=== PATIENT | female | born 2000 | race Caucasian/White ===

== ENCOUNTER 2019-12-23 11:34 | Emergency (ER) | payer BC ==
[2019-12-23] MEDS ORDERED: DEXAMETHASONE SOD PHOS INJ 10 MG/1 ML VIAL IM ONE (13:21)
[2019-12-23] MEDS ORDERED: PENICILLIN G BENZATHINE 1.2 MILLION UNIT/2 ML DISP.SYRIN IM ONE (13:21)
[2019-12-23] MEDS ORDERED: METHYLPREDNISOLONE ACETATE INJ 40 MG/1 ML ML IM ONE (13:21)
--- NOTE | 2019-12-23 13:28 | ER Document Report ---
HPI - HPI Patient complains to provider of: Sore throat Time Seen by Provider: 12/23/19 13:01 Onset: Other - Progressive for 3 days Onset/Duration: Gradual Pain Level: 3 Associated Symptoms: None Exacerbated by: Denies Relieved by: Denies - ROS Systems Reviewed and Negative: Yes All other systems reviewed and negative - EENT EENT: REPORTS: Sore Throat, Ear Pain Past Medical History - General Information source: Patient - Social History Smoking Status: Current Every Day Smoker Cigarette use (# per day): Yes - 20 Frequency of alcohol use: Occasional Drug Abuse: None Family History: None Vertical Provider Document - CONSTITUTIONAL Agree With Documented VS: Yes - INFECTION CONTROL TRAVEL OUTSIDE OF THE [place] IN LAST 30 DAYS: Yes - HEENT HEENT: Atraumatic, Conjuctival Injection, Normocephalic, PERRLA - NECK Neck: Normal Inspection - RESPIRATORY Respiratory: Rhonchi - Skin to the left upper lobe cleared with a cough. Course - Re-evaluation Re-evalutation: 12/23/19 13:25 No nausea no vomiting no fever patient did state she thought she had one previously however she does frequently get that with reactive airway disease and strep throat. 12/23/19 13:26 Patient I had a long conversation regarding smoking and the effects on asthma bronchitis reactive airway disease pharyngitis the smoking education was performed. - Vital Signs Vital signs: Temp Pulse Resp BP Pulse Ox 98.7 F 111 H 20 137/72 H 100 12/23/19 11:39 12/23/19 11:39 12/23/19 11:39 12/23/19 11:39 12/23/19 11:39 Discharge - Discharge Clinical Impression: Reactive airway disease with wheezing Qualifiers: Asthma severity: mild Asthma persistence: intermittent Asthma complication type: with acute exacerbation Qualified Code(s): J45.21 - Mild intermittent asthma with (acute) exacerbation Condition: Good Disposition: HOME, SELF-CARE Additional Instructions: He been diagnosed with reactive airway disease triggers for such could be smoking pollen. Increase fluid intake increase rest must follow-up PMD in 3 to 5 days. Return to emergency room for any change worsening condition. Prescriptions: Prednisone [Deltasone 20 mg Tablet] 3 tab PO DAILY 5 Days tablet
[2019-12-23 14:00] VITALS: BP 103/72
== END 2019-12-23 14:14 | disposition home or self-care (01) ==
LOC: ER 11:34
DX: J45.21 Mild intermittent asthma with (acute) exacerbation (principal); J02.9 Acute pharyngitis, unspecified; H92.09 Otalgia, unspecified ear; F17.210 Nicotine dependence, cigarettes, uncomplicated
CPT/HCPCS: 99283; 96372; 87070; 87880; 87077; J1030; J0561; J1100

== ENCOUNTER 2020-01-08 10:09 | Emergency (ER) | payer BC ==
[2020-01-08 10:15] VITALS: BP 143/76
[2020-01-08] MEDS ORDERED: LIDOCAINE 1% INJ-PF (10 MG/ML) 30 ML SDV NEB ONE (10:40)
[2020-01-08] MEDS ORDERED: CEFTRIAXONE INJ 1000 MG VIAL IM ONE (10:40)
--- NOTE | 2020-01-08 10:46 | ER Document Report ---
ED Breast Problem - General Chief Complaint: Breast Problem Stated Complaint: BREAST PAIN Time Seen by Provider: 01/08/20 10:40 Notes: CHIEF COMPLAINT: Breast infection HPI: 19-year-old female with multiple piercings including nipple rings pre senting for right breast infection. Patient states that her nipple ring ripped out approximately 10 days ago when she got out of the shower when it pulled on a towel. She did place it back in but has had increasing pain and redness to the breast. No fever but reports she has now noticed some redness around the nipple and is concerned about an infection. Denies history of frequent skin infections ROS: See HPI - all other systems were reviewed and are otherwise negative Constitutional: no fever Integumentary: + rash Allergy: no hives Musculoskeletal: no extremity pain or swelling MEDICATIONS: I agree with the patient medications as charted by the RN. ALLERGIES: I agree with the allergies as charted by the RN. PAST MEDICAL HISTORY/PAST SURGICAL HISTORY: Reviewed and agree as charted by RN. SOCIAL HISTORY: Reviewed and agree as charted by RN. FAMILY HISTORY: No significant familial comorbid conditions directly related to patient complaint EXAM: Female air/ocean export clerk present Reviewed vital signs as charted by RN. CONSTITUTIONAL: Alert and oriented and responds appropriately to questions. Well-appearing; well-nourished HEAD: Normocephalic; atraumatic EYES: Conjunctivae clear, sclerae non-icteric ENT: normal nose; no rhinorrhea; moist mucous membranes NECK: Supple without meningismus; non-tender; no cervical lymphadenopathy, no masses CARD: symmetric distal pulses RESP: Normal chest excursion without splinting or tachypnea Breast: Nipple rings are present. There is erythema surrounding the areola of the right breast extending in a diameter of approximately 4 cm. There is no discharge from the nipple of the right breast. There is no retraction. There is no palpable mass, fluctuant or indurated area underneath the areola. ABD/GI: non-distended BACK: The back appears normal EXT: Normal ROM in all joints; no cyanosis, no effusions, no edema SKIN: Normal color for age and race; warm; dry; good turgor NEURO: Moves all extremities equally; Motor and sensory function intact PSYCH: The patient's mood and manner are appropriate. Grooming and personal hygiene are appropriate. MDM: 19-year-old female with a right breast cellulitis. No palpable mass or ind urated region suggesting an abscess at this time we spoke of this at length, will give Rocephin in the emergency department, place patient on Bactrim and Keflex. 48-hour recheck or sooner if symptoms worsen she verbalizes understanding TRAVEL OUTSIDE OF THE [place] IN LAST 30 DAYS: Yes - Related Data Allergies/Adverse Reactions: No Known Allergies Allergy (Verified 12/23/19 13:32) Past Medical History - Social History Smoking Status: Current Every Day Smoker Frequency of alcohol use: Social Drug Abuse: Marijuana Family History: None Physical Exam - Vital signs Vitals: Temp Pulse Resp BP Pulse Ox 99.4 F 110 H 16 143/76 H 100 01/08/20 10:14 01/08/20 10:14 01/08/20 10:01/08/20 10:14 01/08/20 10:14 Course - Vital Signs Vital signs: Temp Pulse Resp BP Pulse Ox 99.4 F 110 H 16 143/76 H 100 01/08/20 10:14 01/08/20 10:14 01/08/20 10:14 01/08/20 10:14 01/08/20 10:14 Discharge - Discharge Clinical Impression: Cellulitis of right breast Condition: Stable Disposition: HOME, SELF-CARE Instructions: Cellulitis ([facility]) Additional Instructions: Warm compresses to the breast frequently. Take the antibiotics as prescribed. You should see improvement in the redness and discomfort within 48 hours if you have worsening redness swelling or firmness of the breast return to the emergency department for reevaluation as discussed Prescriptions: Sulfamethoxazole/Trimethoprim [Bactrim Ds Tablet] 2 tab PO BID #28 tablet Cephalexin Monohydrate [Keflex 500 mg Capsule] 500 mg PO Q6H 7 Days #28 capsule Referrals: MILTON KATZ MD [ACTIVE STAFF] - Follow up as needed
== END 2020-01-08 11:09 | disposition home or self-care (01) ==
LOC: ER 10:09
DX: N61.0 Mastitis without abscess (principal); F17.200 Nicotine dependence, unspecified, uncomplicated; F12.10 Cannabis abuse, uncomplicated
CPT/HCPCS: 99283; 96372; J3490; J0696

== ENCOUNTER 2020-01-09 18:38 | Emergency (ER) | payer SELFPAY ==
[2020-01-09] MEDS ORDERED: ONDANSETRON HCL INJ/PF 4 MG/2 ML SDV IV ONE ×2 (19:34→22:30)
[2020-01-09] MEDS ORDERED: FENTANYL CITRATE INJ/PF 100 MCG/2 ML AMPUL IV ONE ×2 (19:34→22:30)
--- NOTE | 2020-01-09 19:37 | ER Document Report ---
ED Medical Screen (RME) - General Chief Complaint: Skin Problem Stated Complaint: POSSIBLE INFECTED PIERCING Time Seen by Provider: 01/09/20 19:33 Notes: HPI: 19-year-old female presenting again for reevaluation of right breast pain and swelling. Patient was seen 2 days ago for infection around the nipple of the right breast after she tore piercing out. She was given Rocephin Keflex and Bactrim states she is throwing up the antibiotics the pain is much worse and the redness has spread. No definitive fever PHYSICAL EXAMINATION: With female tap builder present the right breast appears more erythematous than previous with erythema extending now up onto the dorsum of the breast. There is still no definitive indurated region around the nipple and areola but there is erythema extending around the nipple with some crusting over the nipple itself I have greeted and performed a rapid initial assessment of this patient. A comprehensive ED assessment and evaluation of the patient, analysis of test results and completion of medical decision making process will be conducted by an additional ED providers. TRAVEL OUTSIDE OF THE [place] IN LAST 30 DAYS: Yes - Related Data Allergies/Adverse Reactions: No Known Allergies Allergy (Verified 12/23/19 13:32) Home Medications: bactrim, keflex--causing vomiting. Past Medical History - Social History Frequency of alcohol use: None Drug Abuse: Marijuana Physical Exam - Vital signs Vitals: Temp Pulse Resp BP Pulse Ox 99.7 F 110 H 19 139/73 H 98 01/09/20 18:49 01/09/20 18:49 01/09/20 18:49 01/09/20 18:49 01/09/20 18:49 Course - Vital Signs Vital signs: Temp Pulse Resp BP Pulse Ox 99.7 F 110 H 19 139/73 H 98 01/09/20 18:49 01/09/20 18:49 01/09/20 18:49 01/09/20 18:49 01/09/20 18:49
[2020-01-09 20:32] LABS: ABSOLUTE BASOPHILS # (AUTO) 0.1 10^3/uL (0.0-0.2); ABSOLUTE EOSINOPHILS # (AUTO) 0.1 10^3/uL (0.0-0.6); HEMOGLOBIN 13.2 g/dL (12.0-15.5); MEAN CORPUSCULAR HGB CONC 33.6 g/dL (32.0-36.0); TOTAL CELLS COUNTED % (AUTO) 100 %
[2020-01-09 20:36] LABS: ALBUMIN 4.6 g/dL (3.5-5.0); ALKALINE PHOSPHATASE 88 U/L (38-126); ANION GAP 9 (5-19); ASPARTATE AMINO TRANSFERASE 19 U/L (14-36); BILIRUBIN,TOTAL 0.6 mg/dL (0.2-1.3); BLOOD UREA NITROGEN 11 mg/dL (7-20); CALCIUM 9.8 mg/dL (8.4-10.2); CARBON DIOXIDE 24 mmol/L (22-30); CHLORIDE 103 mmol/L (98-107); GLUCOSE 87 mg/dL (75-110); POTASSIUM 3.8 mmol/L (3.6-5.0)
[2020-01-09 20:52] LABS: ABSOLUTE LYMPHOCYTES (AUTO) 2.5 10^3/uL (0.5-4.7); ABSOLUTE MONOCYTES (AUTO) 0.9 10^3/uL (0.1-1.4); ABSOLUTE NEUT (AUTO) 12.2 10^3/uL (1.7-8.2); BASOPHILS % (AUTO) 0.6 % (0-2); EOSINOPHILS % (AUTO) 0.5 % (0-6); HEMATOCRIT 39.4 % (36.0-47.0); LYMPHOCYTES % (AUTO) 15.6 % (13-45); MEAN CORPUSCULAR HEMOGLOBIN 29.3 pg (27.0-33.4); MEAN CORPUSCULAR VOLUME 87 fl (80-97); PLATELET COUNT 292 10^3/uL (150-450); RED BLOOD COUNT 4.52 10^6/uL (3.72-5.28); SEGMENTED NEUTROPHILS % (AUTO) 77.3 % (42-78); WHITE BLOOD COUNT 15.7 10^3/uL (4.0-10.5)
--- NOTE | 2020-01-09 22:33 | ER Document Report ---
ED General - General Chief Complaint: Skin Problem Stated Complaint: POSSIBLE INFECTED PIERCING Time Seen by Provider: 01/09/20 19:33 TRAVEL OUTSIDE OF THE [place] IN LAST 30 DAYS: Yes - HPI Notes: 19-year-old female no significant past medical history presents with pain and redness in right breast and discharge from right nipple after accidentally tearing out nipple piercing approximately 1.5 weeks ago. Patient has had breast piercings for past 2 years without complication. Patient was seen in this ED yesterday and prescribed Bactrim and Keflex but she says they have made her vomit and she has not been able to keep them down. Patient denies any fever, abdominal pain, constipation/diarrhea, headache, neck pain or stiffness, cough, chest pain, shortness of breath, immune compromise history, prior episodes, rash, dizziness, fainting, urinary symptoms, vaginal symptoms - Related Data Allergies/Adverse Reactions: No Known Allergies Allergy (Verified 12/23/19 13:32) Home Medications: bactrim, keflex--causing vomiting. Past Medical History - General Information source: Patient, [facility] Records - Social History Smoking Status: Current Every Day Smoker Frequency of alcohol use: None Drug Abuse: Marijuana Family History: None Patient has homicidal ideation: No Review of Systems - Review of Systems Notes: REVIEW OF SYSTEMS: CONSTITUTIONAL : Denies fever, chills, or sweats. EENT: Denies recent cold/sinus symptoms, denies throat pain CARDIOVASCULAR: Denies chest pain, AURELIA RESPIRATORY: Denies cough, denies shortness of breath. GASTROINTESTINAL: Denies abdominal pain, +nausea/vomiting. GENITOURINARY: Denies difficulty urinating, painful urination. FEMALE GENITOURINARY: Denies abnormal vaginal bleeding, vaginal discharge. MUSCULOSKELETAL: Denies neck pain, back pain. SKIN: Denies rash or skin lesions. HEMATOLOGIC : Denies easy bruising or bleeding. LYMPHATIC: Denies swollen, enlarged glands. NEUROLOGICAL: Denies headache, denies change in gait. PSYCHIATRIC: Denies anxiety or stress or depression. Physical Exam - Vital signs Vitals: Temp Pulse Resp BP Pulse Ox 99.7 F 110 H 19 139/73 H 98 01/09/20 18:49 01/09/20 18:49 01/09/20 18:49 01/09/20 18:49 01/09/20 18:49 - Notes Notes: PHYSICAL EXAMINATION: GENERAL: Well-appearing, well-nourished and in no acute distress. HEAD: Atraumatic, normocephalic. EYES: Pupils equal round and appropriate constriction, sclera anicteric, conjunctiva are normal. ENT: nares patent, moist mucous membranes. NECK: Normal range of motion, supple without lymphadenopathy LUNGS: Breath sounds clear to auscultation bilaterally and equal. No wheezes rales or rhonchi. HEART: Regular rate and rhythm without murmurs CHEST: Breast equal in size, left breast normal inspection, right breast very mild erythema around the nipple and crusting of right nipple without any discharge, fluctuance, or induration ABDOMEN: Soft, nontender, no guarding, no masses, no CVAT EXTREMITIES: Normal range of motion, no pitting or edema. No cyanosis. NEUROLOGICAL: Awake, alert, conversing appropriately, moves all extremities spontaneously. PSYCH: Normal mood, normal affect. SKIN: Warm, Dry, normal turgor Course - Re-evaluation Re-evalutation: 01/09/20 22:39 Very well-appearing patient with persistent right breast pain after unable to tolerate p.o. antibiotics. Patient mildly tachycardic during initial triage vitals, but tachycardia resolved at the time of my exam without any inter vention. Given tachycardia and leukocytosis aortic lactate to rule out severe sepsis, but patient clinically very well-appearing and no signs of hemodynamic instability. Pending ultrasound read to rule out breast abscess. Will give first dose of clindamycin p.o. in ED to ensure that patient is able to tolerate it. No signs of any other sources of infection and vomiting appears to be secondary to intolerance of antibiotics. Patient has no abdominal symptoms, no SERVICE TEAM LEADER symptoms, no vaginal or urinary symptoms, no signs of respiratory source and no COVID exposures. 01/09/20 23:13 No read on breast ultrasound greater than 3 hours after images were obtained called I called [facility] radiology, they state he has no images, but they are going to resolve the issue. Lactate normal. Have ordered dose of p.o. clinda and will observe patient in ED to ensure tolerance. 01/09/20 23:45 No abscess on ultrasound. Given mild external erythema will treat for mastitis with 10-day course of Clinda. Will DC with Zofran but patient had Clinda and feels well currently in the ED. Gave patient extensive return to ED precautions which she is demonstrated understanding of. Will follow-up in 3 days with primary doctor for reassessment. Will give patient a copy of all results. - Vital Signs Vital signs: Temp Pulse Resp BP Pulse Ox 99.7 F 79 16 135/67 H 97 01/09/20 18:49 01/09/20 22:41 01/09/20 22:41 01/09/20 22:41 01/09/20 22:41 - Laboratory Result Diagrams: 01/09/20 19:53 01/09/20 19:53 Laboratory results interpreted by me: 01/09/20 01/09/20 19:53 19:53 WBC 15.7 H Absolute Neuts (auto) 12.2 H Sodium 136.3 L Discharge - Discharge Clinical Impression: Mastitis Disposition: HOME, SELF-CARE Additional Instructions: Mastitis (Breast Infection) You have an infection in your breast, called mastitis. This is due to bacteria invading the breast through the milk ducts. Mastitis can be serious, and must be treated carefully. Antibiotics are required. Usually, warm packs are recommended. Some improvement should be evident within 24 to 36 hours. Follow-up care is important to check for abscess (boil) formation or resistant infection. If you develop fever, chills, or if the area of infection is becoming rapidly more swollen or painful, call the doctor at once. Antinausea Medication You have been given a medication to suppress nausea and vomiting. This type of medication can be given as a shot, pill, or suppository. It will usually last for many hours. Pills and shots usually last six to eight hours, suppositories last about 12 hours. For the typical illness, only one or two doses of the medication may be necessary. Mild lightheadedness may occur. This type of medicine can cause drowsiness. Do not drive or operate dangerous machinery while under its influence. Do not mix with alcohol. See your doctor at once if you have muscle spasms or tightness, or uncontrollable motions (particularly of the neck, mouth, or jaw). Persistent vomiting or severe lightheadedness should also be evaluated by the physician. Clindamycin You have been given a prescription for the antibiotic clindamycin. It is often prescribed for infections in the mouth, such as dental infections or abscesses, and for skin infections due to MRSA. It's important that you take all the medication, unless instructed otherwise by your physician. Failure to complete the entire course can result in relapse of your condition. Common side effects of antibiotics include nausea, intestinal cramping, or diarrhea. Women may develop vaginal yeast infections, and babies can get yeast (thrush) in the mouth following the use of antibiotics. Contact your physician if you develop significant side effects from this medication. Allergy to this antibiotic can result in hives, wheezing, faintness, or itching. If symptoms of allergy occur, stop the medication and call the doctor. Take antibiotics as prescribed. Take Zofran as needed for nausea. If you are unable to keep down antibiotics or have any other symptoms such as worsening pain, fever, abdominal pain, urinary symptoms, vaginal symptoms, cough, trouble breathing, dizziness, fainting, diarrhea, rash, confusion, neck pain or stiffness, or any other worsening or alarming symptoms return to the emergency department immediately. See primary doctor within 3 days to be reassessed. Prescriptions: Ibuprofen [Ibu] 600 mg PO Q6HP PRN #20 tablet PRN Reason: Ondansetron [Zofran Odt 4 mg Tablet] 1 tab PO Q6HP PRN #6 tab.rapdis PRN Reason: For Nausea/Vomiting Clindamycin HCl [Cleocin 150 mg Capsule] 450 mg PO TID 10 Days #90 capsule
[2020-01-09] MEDS ORDERED: NORMAL SALINE 1000 ML 1,000 ML IV ONE (22:37)
[2020-01-09] MEDS ORDERED: CLINDAMYCIN HCL 150 MG CAPSULE PO ONE (23:02)
--- NOTE | 2020-01-09 23:28 | RADIOLOGY REPORT (SQ) ---
EXAM DESCRIPTION: US BREAST UNILATERAL LIMITED COMPLETED DATE/TME: 01/09/2020 19:33 CLINICAL HISTORY: 19 years, Female, right breast eval for abscess COMPARISON: None. FINDINGS: Sonographic images of the right breast at the six and nine o'clock position were performed. There is no discrete cystic or solid mass visualized. IMPRESSION: No discrete cystic or solid mass visualized. copyright 2010 [facility] [employer]- All Rights Reserved
[2020-01-10 00:18] VITALS: BP 125/49
== END 2020-01-10 00:36 | disposition home or self-care (01) ==
LOC: ER 18:38
DX: N61.0 Mastitis without abscess (principal); F17.200 Nicotine dependence, unspecified, uncomplicated
CPT/HCPCS: 99284; 96361; 96374; 96375; 36415; 87040; 83605; 84703; 85025; 80053; 76642; J3010; J2405; J7030

== ENCOUNTER 2020-01-12 14:53 | Inpatient (IN) | payer SELFPAY ==
[2020-01-12] MEDS ORDERED: ONDANSETRON HCL INJ/PF 4 MG/2 ML SDV IV ONE (15:19)
[2020-01-12] MEDS ORDERED: NORMAL SALINE 1000 ML 1,000 ML IV ONE (15:19)
[2020-01-12] MEDS ORDERED: NORMAL SALINE 1000 ML 300 ML IV ONE (15:21)
--- NOTE | 2020-01-12 15:22 | ER Document Report ---
ED Medical Screen (RME) - General Chief Complaint: Fever Stated Complaint: FEVER Notes: Patient is a 19-year-old white female with a past medical history reported of random intermittent vomiting that she is never had investigated or evaluated who presents the emergency department with a chief complaint of fever for the past 2 or 3 days. She states the highest was 103.7 Fahrenheit max. She states she also cannot tolerate any oral intake. Any food or drink she tries to consume is quickly vomited. She denies any diarrhea or trouble with urination. Admits to some associated abdominal discomfort. Denies any known sick contacts or recent travel. I have treated and performed a rapid initial assessment of this patient. A comprehensive ED assessment and evaluation of the patient, analysis of test results and completion of medical decision making process will be conducted by additional ED providers. PHYSICAL EXAMINATION: GENERAL: Well-appearing, well-nourished and in no acute distress. A&Ox4. Answers questions appropriately. TRAVEL OUTSIDE OF THE [place] IN LAST 30 DAYS: Yes - Related Data Allergies/Adverse Reactions: No Known Allergies Allergy (Verified 12/23/19 13:32) Physical Exam - Vital signs Vitals: Temp Pulse Resp BP Pulse Ox 101.9 F H 135 H 20 141/80 H 98 01/12/20 15:00 01/12/20 15:00 01/12/20 15:01/12/20 15:00 01/12/20 15:00 Course - Vital Signs Vital signs: Temp Pulse Resp BP Pulse Ox 101.9 F H 135 H 20 141/80 H 98 01/12/20 15:00 01/12/20 15:00 01/12/20 15:00 01/12/20 15:00 01/12/20 15:00
--- NOTE | 2020-01-12 16:09 | RADIOLOGY REPORT (SQ) ---
EXAM DESCRIPTION: ACUTE ABDOMEN SERIES IMAGES COMPLETED DATE/TIME: 01/12/2020 4:01 pm REASON FOR STUDY: abd pain, n/v COMPARISON: None. NUMBER OF VIEWS: Three views. TECHNIQUE: Frontal chest, supine abdomen and upright/decubitus abdomen radiographic images acquired. LIMITATIONS: None. FINDINGS: CHEST: Lungs clear of infiltrates. FREE AIR: None. No abnormal gas collections. BOWEL GAS PATTERN: Nonobstructive pattern. No dilated loops or air fluid levels. CALCIFICATIONS: No suspicious calcifications. HARDWARE: None in the abdomen. SOFT TISSUES: No gross mass or suggestion of organomegaly. BONES: No acute fracture. No worrisome bone lesions. OTHER: No other significant finding. IMPRESSION: NO RADIOGRAPHIC EVIDENCE FOR ACUTE ABDOMINAL DISEASE. TECHNICAL DOCUMENTATION: JOB ID: [id number] 2010 [employer]- All Rights Reserved Reading location - IP/workstation name: [email or web address]
[2020-01-12 17:00] LABS: ABSOLUTE BASOPHILS # (AUTO) 0.1 10^3/uL (0.0-0.2); ABSOLUTE LYMPHOCYTES (AUTO) 1.2 10^3/uL (0.5-4.7); ABSOLUTE MONOCYTES (AUTO) 0.5 10^3/uL (0.1-1.4); ABSOLUTE NEUT (AUTO) 14.4 10^3/uL (1.7-8.2); BASOPHILS % (AUTO) 0.4 % (0-2); HEMATOCRIT 36.2 % (36.0-47.0); HEMOGLOBIN 12.7 g/dL (12.0-15.5); LYMPHOCYTES % (AUTO) 7.2 % (13-45); MEAN CORPUSCULAR HEMOGLOBIN 29.9 pg (27.0-33.4); MEAN CORPUSCULAR HGB CONC 34.9 g/dL (32.0-36.0); MEAN CORPUSCULAR VOLUME 86 fl (80-97); MONOCYTES % (AUTO) 3.2 % (3-13); PLATELET COUNT 308 10^3/uL (150-450); RED BLOOD COUNT 4.24 10^6/uL (3.72-5.28); RED CELL DISTRIBUTION WIDTH 13.6 % (11.5-14.0); SEGMENTED NEUTROPHILS % (AUTO) 89.2 % (42-78); TOTAL CELLS COUNTED % (AUTO) 100 %; WHITE BLOOD COUNT 16.2 10^3/uL (4.0-10.5)
[2020-01-12 17:16] LABS: ALBUMIN 4.4 g/dL (3.5-5.0); ALKALINE PHOSPHATASE 89 U/L (38-126); ANION GAP 14 (5-19); ASPARTATE AMINO TRANSFERASE 26 U/L (14-36); BILIRUBIN,TOTAL 0.8 mg/dL (0.2-1.3); BLOOD UREA NITROGEN 11 mg/dL (7-20); CALCIUM 9.6 mg/dL (8.4-10.2); CARBON DIOXIDE 22 mmol/L (22-30); CHLORIDE 103 mmol/L (98-107); GLUCOSE 109 mg/dL (75-110); TOTAL PROTEIN 8.3 g/dL (6.3-8.2)
[2020-01-12] MEDS ORDERED: ACETAMINOPHEN 325 MG TABLET PO ONE (17:25)
[2020-01-12] MEDS ORDERED: CEFTRIAXONE 1 GM/D5W RTU 50 ML IV ONE (17:29)
--- NOTE | 2020-01-12 17:33 | ER Document Report ---
ED Fever - General Chief Complaint: Nausea/Vomiting Stated Complaint: FEVER Time Seen by Provider: 01/12/20 17:03 Mode of Arrival: Ambulatory Information source: Patient Notes: 19-year-old female presents to the emergency room complaining of nausea, vomiting, and fever for the past 2 days. States her fever got to 103.7 today. Patient states she did was seen here on January 07 as well as January 08 for an infected right nipple piercing as well as a left eyebrow piercing. Patient states that her right nipple piercing came out approximately a month ago while she was drying off after getting out of the shower states she put the nipple ring back in but did not have any problems with it until January 07. She noticed some redness in tenderness to the area. Also noticed some erythema and swelling to her left eyebrow as well. Patient was discharged home at that time on Bactrim and Keflex. Returned the next day she was unable to tolerate the Bactrim and the Keflex. At that time she had labs and an ultrasound done elevated white count negative ultrasound was given p.o. clindamycin in the emergency room which she was able to tolerate and was discharged home on Zofran and clindamycin. States she has been able to take the medications until 2 days ago. States she is now unable to tolerate anything p.o. has been trying to take ibuprofen but keeps vomiting it back up. Complains of some intermittent abdominal pain which she relates to her vomiting. She denies any recent travel. No COVID-19 exposure. No other ill contacts. TRAVEL OUTSIDE OF THE [place] IN LAST 30 DAYS: Yes - Related Data Allergies/Adverse Reactions: No Known Allergies Allergy (Verified 01/12/20 16:59) Past Medical History - General Information source: Patient - Social History Smoking Status: Current Every Day Smoker Chew tobacco use (# tins/day): No Frequency of alcohol use: None Drug Abuse: Marijuana Family History: None Review of Systems - Review of Systems Constitutional: Fever, Malaise EENT: No symptoms reported Cardiovascular: No symptoms reported Respiratory: No symptoms reported Female Genitourinary: No symptoms reported Skin: Other - Erythema Neurological/Psychological: No symptoms reported -: Yes All other systems reviewed and negative Physical Exam - Vital signs Vitals: Temp Pulse Resp BP Pulse Ox 101.9 F H 135 H 20 141/80 H 98 01/12/20 15:00 01/12/20 15:00 01/12/20 15:00 01/12/20 15:00 01/12/20 15:00 - General General appearance: Alert, Other - Ill-appearing but nontoxic appearing In distress: Mild - HEENT Head: Normocephalic, Other - Left outer eyebrow piercing is noted there is erythema noted around the piercing. It is tender to palpation with no active discharge or draining noted. Eyes: Normal Conjunctiva: Normal Extraocular movements intact: Yes Pharynx: Normal Neck: Normal. No: Lymphadenopathy - Respiratory Respiratory status: No respiratory distress Chest status: Nontender Breath sounds: Normal Chest palpation: Normal - Cardiovascular Rhythm: Tachycardia Heart sounds: Normal auscultation Murmur: No Gallop: None auscultated - Neurological Neuro grossly intact: Yes Cognition: Normal Orientation: AAOx4 Chancellor Coma Scale Eye Opening: Spontaneous [place] Coma Scale Verbal: Oriented Chancellor Coma Scale Motor: Obeys Commands Chancellor Coma Scale Total: 15 Speech: Normal Motor strength normal: LUE, RUE, LLE, RLE Sensory: Normal - Skin Skin Temperature: Warm Skin Moisture: Dry Skin Color: Erythema Skin irregularity: Erythema, other - Crusting Location of irregularity: Other - Right nipple with erythema and crusting noted around the piercing. Warm and tender to palpation without any active discharge or draining noted. Course - Re-evaluation Re-evalutation: 01/12/20 18:20 Discussed all lab findings with patient. Aware of need for admission for IV antibiotics and sepsis protocol. Patient is agreeable to admission. - Vital Signs Vital signs: Temp Pulse Resp BP Pulse Ox 101.9 F H 135 H 20 141/80 H 98 01/12/20 15:00 01/12/20 15:00 01/12/20 15:00 01/12/20 15:00 01/12/20 15:00 - Laboratory Result Diagrams: 01/12/20 16:35 01/12/20 16:35 Laboratory results interpreted by me: 01/12/20 01/12/20 01/12/20 16:35 16:35 16:35 WBC 16.2 H Lymph % (Auto) 7.2 L Absolute Neuts (auto) 14.4 H Seg Neutrophils % 89.2 H Total Protein 8.3 H Urine Protein 100 H Urine Ketones TRACE H Urine Blood LARGE H Leukocyte Esterase Rfl MODERATE H - Diagnostic Test Radiology reviewed: Reports reviewed - Consults Ian Khan NP Time consulted: 18:22 Reason for consultation: 01/12/20 19:56 Discussed lab findings patient failed outpatient p.o. therapy for cellulitis. Admit for IV antibiotics and sepsis. Went to the service of Dr. Man Consulted provider: will come to ER Discharge - Discharge Clinical Impression: Cellulitis of right breast, Cellulitis of eyebrow Sepsis Qualifiers: Sepsis type: sepsis due to unspecified organism Sepsis acute organ dysfunction status: without acute organ dysfunction Qualified Code(s): A41.9 - Sepsis, unspecified organism Condition: Stable Disposition: ADMITTED INPATIENT Admitting Provider: Magda (Hospitalist) Unit Admitted: Medical Floor
[2020-01-12] MEDS ORDERED: CEFTRIAXONE 1 GM/D5W RTU 1 GM/50 ML RTUPB IV ONE (17:38)
[2020-01-12 17:48] LABS: APPEARANCE,URINE TURBID; BILIRUBIN,URINE NEGATIVE (NEGATIVE); COLOR,URINE AMBER; GLUCOSE, URINE NEGATIVE (NEGATIVE); KETONES,URINE TRACE mg/dL (NEGATIVE); PROTEIN,URINE 100 mg/dL (NEGATIVE); UROBILINOGEN,URINE NEGATIVE mg/dL (<2.0)
[2020-01-12] MEDS ORDERED: VANCOMYCIN HCL INJ 1000 MG VIAL IV ONE (18:16)
--- NOTE | 2020-01-12 20:10 | PDOC H&P ---
History of Present Illness Patient complains of: Pain and infection in left eyebrow and right nipple (site or piercings) History of Present Illness: MYKEL ACUÑA is a 19 year old female who has presented 2 times in the recent past with left eyebrow and right nipple piercing site infections. On the first visit she was placed on an antibiotic and discharged and told that if her infection did not improve to return to the ED. Approximately 1 week later she returned to the ED because her infection did not appear to be getting any better to her. At that point she was placed on a second antibiotic however subsequent to starting that she developed nausea and vomiting. She presented today with complaints of generalized weakness, malaise, fever, and ongoing infection. Past Medical History Cardiac Medical History: Reports: None Pulmonary Medical History: Reports: None EENT Medical History: Reports: None Neurological Medical History: Reports: None Endocrine Medical History: Reports: None Renal/ Medical History: Reports: None Malignancy Medical History: Reports: None GI Medical History: Reports: None Musculoskeltal Medical History: Reports: None Skin Medical History: Reports: Other - Corrected left eyebrow and right nipple piercings Psychiatric Medical History: Reports: Tobacco Dependency, Other - H/O crack cocaine abuse clean for 6 months. Regular cannabis user Denies: Alcohol Dependency Traumatic Medical History: Reports: None Hematology: Reports: None Infectious Medical History: Reports: None Past Surgical History Past Surgical History: Reports: None Social History Information Source: Patient Smoking Status: Current Every Day Smoker Electronic Cigarette use?: Yes Frequency of Alcohol Use: None Hx Recreational Drug Use: Yes - Regular cannabis use Drugs: Cocaine - Former crack cocaine user, clean x6 months, Marijuana Hx Prescription Drug Abuse: No Family History Family History: None Parental Family History Reviewed: Yes - Mother in MVC when it was child. Father AAW Children Family History Reviewed: Yes Sibling(s) Family History Reviewed.: Yes Medication/Allergy Home Medications: Prednisone [Deltasone 20 mg Tablet] 3 tab PO DAILY 5 Days tablet 12/23/19 Cephalexin Monohydrate [Keflex 500 mg Capsule] 500 mg PO Q6H 7 Days #28 capsule 01/08/20 Sulfamethoxazole/Trimethoprim [Bactrim Ds Tablet] 2 tab PO BID #28 tablet 01/08/20 Clindamycin HCl [Cleocin 150 mg Capsule] 450 mg PO TID 10 Days #90 capsule 01/09/20 Ibuprofen [Ibu] 600 mg PO Q6HP PRN #20 tablet 01/09/20 Ondansetron [Zofran Odt 4 mg Tablet] 1 tab PO Q6HP PRN #6 tab.rapdis 01/09/20 Allergies/Adverse Reactions: No Known Allergies Allergy (Verified 01/12/20 16:59) Review of Systems Constitutional: PRESENT: chills, fatigue, fever(s), night sweats, weakness Eyes: ABSENT: visual disturbances Ears: ABSENT: hearing changes Nose, Mouth, and Throat: ABSENT: headache(s), mouth pain, sore throat, vertigo Cardiovascular: ABSENT: chest pain, dyspnea on exertion, edema, orthropnea, palpitations Respiratory: ABSENT: cough, dyspnea, hemoptysis, sputum Gastrointestinal: PRESENT: nausea, vomiting. ABSENT: abdominal pain, coffee ground emesis, constipation, diarrhea, dysphagia, heartburn, hematemesis, hematochezia, melena Genitourinary: PRESENT: hematuria - Patient is currently on her menstrual cycle. ABSENT: difficulty urinating, dysuria Integumentary: PRESENT: erythema - Left eyebrow/right nipple. ABSENT: diaphoresis Neurological: ABSENT: abnormal gait, abnormal speech, confusion, dizziness, focal weakness, frequent falls, lack of coordination, memory loss, numbness, paresthesias, restless legs, syncope, tingling, tremor(s), vertigo Psychiatric: ABSENT: anxiety, depression, homidical ideation, suicidal ideation Endocrine: ABSENT: cold intolerance, heat intolerance Hematologic/Lymphatic: ABSENT: easy bleeding, easy bruising Physical Exam Vital Signs: Temp Pulse Resp BP Pulse Ox 101.9 F H 135 H 20 141/80 H 98 01/12/20 15:00 01/12/20 15:00 01/12/20 15:00 01/12/20 15:00 01/12/20 15:00 Intake & Output 01/11/20 01/12/20 01/13/20 06:59 06:59 06:59 Intake Total 1350 Balance 1350 Weight 65.771 kg General appearance: PRESENT: no acute distress, cooperative, well-developed, well-nourished Head exam: PRESENT: atraumatic, normocephalic Eye exam: PRESENT: conjunctiva pink Mouth exam: PRESENT: moist, tongue midline Neck exam: ABSENT: JVD Respiratory exam: PRESENT: clear to auscultation brenna, symmetrical. ABSENT: acc essory muscle use, unlabored Cardiovascular exam: PRESENT: RRR, +S1, +S2 Pulses: PRESENT: normal carotid pulses, normal radial pulses GI/Abdominal exam: PRESENT: normal bowel sounds, soft. ABSENT: distended, tenderness Rectal exam: PRESENT: deferred Extremities exam: ABSENT: calf tenderness, pedal edema Musculoskeletal exam: PRESENT: ambulatory Neurological exam: PRESENT: alert, awake, oriented to person, oriented to place, oriented to time, oriented to situation, CN II-XII grossly intact. ABSENT: motor sensory deficit Psychiatric exam: PRESENT: appropriate affect, normal mood. ABSENT: agitated, anxious Skin exam: PRESENT: dry, normal color, warm Results Laboratory Results: 01/12/20 16:35 01/12/20 16:35 01/12/20 01/12/20 01/12/20 16:35 16:35 16:35 WBC 16.2 H RBC 4.24 Hgb 12.7 Hct 36.2 MCV 86 MCH 29.9 MCHC 34.9 RDW 13.6 Plt Count 308 Seg Neutrophils % 89.2 H Sodium 138.8 Potassium 4.0 Chloride 103 Carbon Dioxide 22 Anion Gap 14 BUN 11 Creatinine 0.91 Est GFR ( Amer) > 60 Glucose 109 Lactic Acid 1.3 Calcium 9.6 Total Bilirubin 0.8 AST 26 Alkaline Phosphatase 89 Total Protein 8.3 H Albumin 4.4 Lipase 91.4 Urine Color Urine Appearance Urine pH Ur Specific [place] Urine Protein Urine Glucose (UA) Urine Ketones Urine Blood Urine RBC (Auto) 01/12/20 16:35 WBC RBC Hgb Hct MCV MCH MCHC RDW Plt Count Seg Neutrophils % Sodium Potassium Chloride Carbon Dioxide Anion Gap BUN Creatinine Est GFR ( Amer) Glucose Lactic Acid Calcium Total Bilirubin AST Alkaline Phosphatase Total Protein Albumin Lipase Urine Color MARIA INES Urine Appearance TURBID Urine pH 5.0 Ur Specific [place] 1.030 Urine Protein 100 H Urine Glucose (UA) NEGATIVE Urine Ketones TRACE H Urine Blood LARGE H Urine RBC (Auto) 112 Impressions: Acute Abdomen Series 01/12/20 15:20 IMPRESSION: NO RADIOGRAPHIC EVIDENCE FOR ACUTE ABDOMINAL DISEASE. Assessment and Plan - Diagnosis (1) Sepsis Qualifiers: Sepsis type: sepsis due to unspecified organism Sepsis acute organ dysfunction status: without acute organ dysfunction Qualified Code(s): A41.9 - Sepsis, unspecified organism Is this a current diagnosis for this admission?: Yes Plan: Sepsis as evidenced by fever/leukocytosis/tachycardia Received vancomycin and ceftriaxone in the ED Received fluid boluses in the ED Serial lactic acid and repeat fluid bolus PRN Start doxycycline 100 mg IV every 12 hours Start mupirocin topically every 12 hours (2) Cellulitis Qualifiers: Site of cellulitis: face Qualified Code(s): L03.211 - Cellulitis of face Is this a current diagnosis for this admission?: Yes Plan: Patient has cellulitis of the left eyebrow and right nipple 2/2 infected piercings Patient was requested to remove the piercing jewelry - Time Time Spent with patient: 35 or more minutes Medications reviewed and adjusted accordingly: Yes Anticipated Discharge Disposition: Home, Self Care Anticipated Discharge Timeframe: within 72 hours
[2020-01-12] MEDS ORDERED: ONDANSETRON HCL INJ/PF 4 MG/2 ML SDV IV PRN (20:20)
[2020-01-12] MEDS ORDERED: LORAZEPAM INJ 2 MG/1 ML VIAL IV ONE (20:42)
[2020-01-13] MEDS ORDERED: DOXYCYCLINE HYCLATE INJ 100 MG VIAL ONE (01:50)
[2020-01-13] MEDS ORDERED: MUPIROCIN 2% OINTMENT 22 GM ONE (01:50)
[2020-01-13] MEDS: MUPIROCIN 2% OINTMENT 22 GM TOP SCH ×3 (02:28→21:39)
[2020-01-13] MEDS: NORMAL SALINE 1000 ML 1,000 ML IV PRN ×2 (02:30→15:39)
[2020-01-13 02:53] LABS: ABSOLUTE BASOPHILS # (AUTO) 0.1 10^3/uL (0.0-0.2); ABSOLUTE EOSINOPHILS # (AUTO) 0.1 10^3/uL (0.0-0.6); ABSOLUTE LYMPHOCYTES (AUTO) 2.5 10^3/uL (0.5-4.7); ABSOLUTE MONOCYTES (AUTO) 0.5 10^3/uL (0.1-1.4); ABSOLUTE NEUT (AUTO) 12.1 10^3/uL (1.7-8.2); BASOPHILS % (AUTO) 0.4 % (0-2); HEMOGLOBIN 11.4 g/dL (12.0-15.5); LYMPHOCYTES % (AUTO) 16.2 % (13-45); MEAN CORPUSCULAR HEMOGLOBIN 29.2 pg (27.0-33.4); MEAN CORPUSCULAR HGB CONC 33.6 g/dL (32.0-36.0); MEAN CORPUSCULAR VOLUME 87 fl (80-97); MONOCYTES % (AUTO) 3.1 % (3-13); PLATELET COUNT 299 10^3/uL (150-450); RED BLOOD COUNT 3.91 10^6/uL (3.72-5.28); RED CELL DISTRIBUTION WIDTH 13.6 % (11.5-14.0); SEGMENTED NEUTROPHILS % (AUTO) 79.3 % (42-78); TOTAL CELLS COUNTED % (AUTO) 100 %; WHITE BLOOD COUNT 15.2 10^3/uL (4.0-10.5)
[2020-01-13 03:06] LABS: ALBUMIN 3.7 g/dL (3.5-5.0); ALKALINE PHOSPHATASE 68 U/L (38-126); ANION GAP 8 (5-19); ASPARTATE AMINO TRANSFERASE 20 U/L (14-36); BILIRUBIN,TOTAL 0.7 mg/dL (0.2-1.3); BLOOD UREA NITROGEN 9 mg/dL (7-20); CALCIUM 9.3 mg/dL (8.4-10.2); CARBON DIOXIDE 24 mmol/L (22-30); CHLORIDE 110 mmol/L (98-107); GLUCOSE 104 mg/dL (75-110); POTASSIUM 4.2 mmol/L (3.6-5.0); TOTAL PROTEIN 7.1 g/dL (6.3-8.2)
[2020-01-13] MEDS: ACETAMINOPHEN 325 MG TABLET PO PRN ×3 (05:47→15:38)
[2020-01-13] MEDS ORDERED: DOXYCYCLINE HYCLATE INJ 100 MG VIAL IV SCH ×2 (06:00→07:00)
[2020-01-13] MEDS: GUAIFENESIN SYRP 200 MG/10 ML UDC PO PRN (06:40)
--- NOTE | 2020-01-13 09:06 | PDOC PROGRESS REPORT ---
Subjective Progress Note for:: 01/13/20 Subjective:: Patient states that she does not feel well this a.m. Reason For Visit: SEPSIS 2/2 INFECTED LEFT EYE BROW RING AND RIGHT Physical Exam Vital Signs: Temp Pulse Resp BP Pulse Ox 98.5 F 92 16 124/53 L 97 01/13/20 07:24 01/13/20 07:24 01/13/20 07:24 01/13/20 07:24 01/13/20 07:24 Intake & Output 01/12/20 01/13/20 01/14/20 06:59 06:59 06:59 Intake Total 1350 Balance 1350 Weight 65.2 kg General appearance: PRESENT: no acute distress, cooperative, well-developed, well-nourished, other - Lying in bed in position Head exam: PRESENT: atraumatic, normocephalic Eye exam: PRESENT: conjunctiva pink Mouth exam: PRESENT: moist, tongue midline Neck exam: ABSENT: JVD Respiratory exam: PRESENT: clear to auscultation brenna, symmetrical, unlabored. ABSENT: accessory muscle use Cardiovascular exam: PRESENT: RRR, +S1 Vascular exam: PRESENT: normal capillary refill GI/Abdominal exam: PRESENT: normal bowel sounds, soft. ABSENT: distended, tenderness Rectal exam: PRESENT: deferred Extremities exam: ABSENT: calf tenderness Musculoskeletal exam: PRESENT: ambulatory Neurological exam: PRESENT: alert, awake, oriented to person, oriented to place, oriented to time, oriented to situation, CN II-XII grossly intact. ABSENT: motor sensory deficit Psychiatric exam: PRESENT: appropriate affect. ABSENT: agitated, anxious Skin exam: PRESENT: dry, warm, other - Skin is flushed. Left eyebrow and right nipple remain erythemic without exudate. Piercings have been removed Results Laboratory Results: 01/13/20 02:42 01/13/20 02:42 01/12/20 01/12/20 01/12/20 16:35 16:35 16:35 WBC 16.2 H RBC 4.24 Hgb 12.7 Hct 36.2 MCV 86 MCH 29.9 MCHC 34.9 RDW 13.6 Plt Count 308 Seg Neutrophils % 89.2 H Sodium 138.8 Potassium 4.0 Chloride 103 Carbon Dioxide 22 Anion Gap 14 BUN 11 Creatinine 0.91 Est GFR ( Amer) > 60 Glucose 109 Lactic Acid 1.3 Calcium 9.6 Total Bilirubin 0.8 AST 26 Alkaline Phosphatase 89 Total Protein 8.3 H Albumin 4.4 Lipase 91.4 Urine Color Urine Appearance Urine pH Ur Specific [place] Urine Protein Urine Glucose (UA) Urine Ketones Urine Blood Urine RBC (Auto) 01/12/20 01/12/20 01/12/20 16:35 20:27 23:23 WBC RBC Hgb Hct MCV MCH MCHC RDW Plt Count Seg Neutrophils % Sodium Potassium Chloride Carbon Dioxide Anion Gap BUN Creatinine Est GFR ( Amer) Glucose Lactic Acid 0.7 0.7 Calcium Total Bilirubin AST Alkaline Phosphatase Total Protein Albumin Lipase Urine Color MARIA INES Urine Appearance TURBID Urine pH 5.0 Ur Specific [place] 1.030 Urine Protein 100 H Urine Glucose (UA) NEGATIVE Urine Ketones TRACE H Urine Blood LARGE H Urine RBC (Auto) 112 01/13/20 01/13/20 01/13/20 02:42 02:42 02:42 WBC 15.2 H RBC 3.91 Hgb 11.4 L Hct 34.0 L MCV 87 MCH 29.2 MCHC 33.6 RDW 13.6 Plt Count 299 Seg Neutrophils % 79.3 H Sodium 141.9 Potassium 4.2 Chloride 110 H Carbon Dioxide 24 Anion Gap 8 BUN 9 Creatinine 0.75 Est GFR ( Amer) > 60 Glucose 104 Lactic Acid 1.2 Calcium 9.3 Total Bilirubin 0.7 AST 20 Alkaline Phosphatase 68 Total Protein 7.1 Albumin 3.7 Lipase Urine Color Urine Appearance Urine pH Ur Specific [place] Urine Protein Urine Glucose (UA) Urine Ketones Urine Blood Urine RBC (Auto) Impressions: Acute Abdomen Series 01/12/20 15:20 IMPRESSION: NO RADIOGRAPHIC EVIDENCE FOR ACUTE ABDOMINAL DISEASE. Assessment and Plan - Diagnosis (1) Sepsis Qualifiers: Sepsis type: sepsis due to unspecified organism Sepsis acute organ dysfunction status: without acute organ dysfunction Qualified Code(s): A41.9 - Sepsis, unspecified organism Is this a current diagnosis for this admission?: Yes Plan: Sepsis as evidenced by fever/leukocytosis/tachycardia Fever and tachycardia improved Continues to have leukocytosis Received vancomycin and ceftriaxone in the ED Received fluid boluses in the ED Serial lactic acid and repeat fluid bolus PRN Blood cultures from 01/12/2020 pending Continue doxycycline 100 mg IV every 12 hours Continue mupirocin topically every 12 hours (2) Cellulitis Qualifiers: Site of cellulitis: face Qualified Code(s): L03.211 - Cellulitis of face Is this a current diagnosis for this admission?: Yes Plan: Patient has cellulitis of the left eyebrow and right nipple 2/2 infected piercings Antibiotics as noted above - Time Time Spent with patient: 25-34 minutes Medications reviewed and adjusted accordingly: Yes Anticipated Discharge Disposition: Home, Self Care Anticipated Discharge Timeframe: within 72 hours
[2020-01-13] MEDS: DOXYCYCLINE HYCLATE 100 MG in DEXTROSE 5%-WATER 250 ML IV SCH ×2 (15:37→22:31)
[2020-01-13] MEDS ORDERED: MICONAZOLE NITRATE 200 MG/SUPP (3 SUPP/BOX) VG SCH (19:00)
[2020-01-13] MEDS ORDERED: FLUCONAZOLE 100 MG TABLET PO ONE (22:00)
[2020-01-14] MEDS: ACETAMINOPHEN 325 MG TABLET PO PRN ×3 (00:19→10:11)
[2020-01-14] MEDS: LORAZEPAM INJ 2 MG/1 ML VIAL IV PRN ×3 (05:42→19:59)
[2020-01-14 07:12] LABS: ABSOLUTE BASOPHILS # (AUTO) 0.1 10^3/uL (0.0-0.2); ABSOLUTE EOSINOPHILS # (AUTO) 0.1 10^3/uL (0.0-0.6); ABSOLUTE LYMPHOCYTES (AUTO) 1.5 10^3/uL (0.5-4.7); ABSOLUTE MONOCYTES (AUTO) 0.4 10^3/uL (0.1-1.4); ABSOLUTE NEUT (AUTO) 9.9 10^3/uL (1.7-8.2); BASOPHILS % (AUTO) 0.8 % (0-2); EOSINOPHILS % (AUTO) 0.7 % (0-6); HEMATOCRIT 28.9 % (36.0-47.0); HEMOGLOBIN 9.8 g/dL (12.0-15.5); LYMPHOCYTES % (AUTO) 12.7 % (13-45); MEAN CORPUSCULAR HEMOGLOBIN 29.4 pg (27.0-33.4); MEAN CORPUSCULAR HGB CONC 34.1 g/dL (32.0-36.0); MEAN CORPUSCULAR VOLUME 86 fl (80-97); PLATELET COUNT 261 10^3/uL (150-450); RED BLOOD COUNT 3.34 10^6/uL (3.72-5.28); RED CELL DISTRIBUTION WIDTH 13.4 % (11.5-14.0); SEGMENTED NEUTROPHILS % (AUTO) 82.8 % (42-78); TOTAL CELLS COUNTED % (AUTO) 100 %
[2020-01-14 07:32] LABS: ANION GAP 9 (5-19); BLOOD UREA NITROGEN 3 mg/dL (7-20); CALCIUM 8.4 mg/dL (8.4-10.2); CARBON DIOXIDE 21 mmol/L (22-30); CHLORIDE 108 mmol/L (98-107); GLUCOSE 90 mg/dL (75-110)
[2020-01-14] MEDS: MUPIROCIN 2% OINTMENT 22 GM TOP SCH ×2 (10:11→22:20)
[2020-01-14] MEDS: DOXYCYCLINE HYCLATE 100 MG in DEXTROSE 5%-WATER 250 ML IV SCH ×2 (10:12→22:20)
[2020-01-14] MEDS: GUAIFENESIN SYRP 200 MG/10 ML UDC PO PRN (10:12)
[2020-01-14] MEDS ORDERED: NORMAL SALINE 1000 ML 1,000 ML IV ONE (11:59)
[2020-01-14] MEDS ORDERED: IBUPROFEN 800 MG TABLET ONE (12:10)
--- NOTE | 2020-01-14 12:18 | PDOC PROGRESS REPORT ---
Subjective Progress Note for:: 01/14/20 Subjective:: Patient states that she feels she has a fever. She is lying in bed in the position and the sheets of her bed are wet with perspiration Reason For Visit: SEPSIS 2/2 INFECTED LEFT EYE BROW RING AND RIGHT Physical Exam Vital Signs: Temp Pulse Resp BP Pulse Ox 101.1 F H 121 H 18 138/64 H 95 01/14/20 10:56 01/14/20 10:56 01/14/20 10:56 01/14/20 10:56 01/14/20 10:56 Intake & Output 01/13/20 01/14/20 01/15/20 06:59 06:59 06:59 Intake Total 1350 2200 Balance 1350 2200 Weight 65.2 kg 65.4 kg General appearance: PRESENT: no acute distress, cooperative, well-developed, well-nourished Head exam: PRESENT: atraumatic, normocephalic Eye exam: PRESENT: conjunctiva pink Mouth exam: PRESENT: moist, tongue midline Neck exam: ABSENT: JVD Respiratory exam: PRESENT: clear to auscultation brenna, symmetrical, unlabored. ABSENT: accessory muscle use Cardiovascular exam: PRESENT: RRR, +S1, +S2 Vascular exam: PRESENT: normal capillary refill GI/Abdominal exam: PRESENT: normal bowel sounds, soft. ABSENT: distended, tenderness Rectal exam: PRESENT: deferred Extremities exam: ABSENT: calf tenderness, pedal edema Musculoskeletal exam: PRESENT: ambulatory Neurological exam: PRESENT: alert, awake, oriented to person, oriented to place, oriented to time, oriented to situation, CN II-XII grossly intact. ABSENT: mo tor sensory deficit Psychiatric exam: PRESENT: appropriate affect, normal mood. ABSENT: agitated, anxious Skin exam: PRESENT: dry, normal color, warm Results Laboratory Results: 01/14/20 06:42 01/14/20 06:42 01/14/20 01/14/20 06:42 06:42 WBC 12.0 H RBC 3.34 L Hgb 9.8 L Hct 28.9 L MCV 86 MCH 29.4 MCHC 34.1 RDW 13.4 Plt Count 261 Seg Neutrophils % 82.8 H Sodium 138.2 Potassium 4.0 Chloride 108 H Carbon Dioxide 21 L Anion Gap 9 BUN 3 L Creatinine 0.72 Est GFR ( Amer) > 60 Glucose 90 Calcium 8.4 Impressions: Acute Abdomen Series 01/12/20 15:20 IMPRESSION: NO RADIOGRAPHIC EVIDENCE FOR ACUTE ABDOMINAL DISEASE. Assessment and Plan - Diagnosis (1) Sepsis Qualifiers: Sepsis type: sepsis due to unspecified organism Sepsis acute organ dysfunction status: without acute organ dysfunction Qualified Code(s): A41.9 - Sepsis, unspecified organism Is this a current diagnosis for this admission?: Yes Plan: Sepsis as evidenced by fever/leukocytosis/tachycardia Leukocytosis continues to improve Received vancomycin and ceftriaxone in the ED Cellulitis pattern on left eyebrow and right nipple almost completely resolved however patient subjectively still continues to not feel well and is toxic in appearance UA +/-, trace bacteria, moderate LE, negative nitrite -will request urine culture Will give NS fluid bolus (1000 cc) and increase IVF to 150 cc/h Blood cultures from 01/12/2020 NG at 24 hours Continue doxycycline 100 mg IV every 12 hours Add ceftriaxone 1 g IV every 24 hours Continue mupirocin topically every 12 hours (2) Cellulitis Qualifiers: Site of cellulitis: face Qualified Code(s): L03.211 - Cellulitis of face Is this a current diagnosis for this admission?: Yes Plan: Patient has cellulitis of the left eyebrow and right nipple 2/2 infected piercings which is improving Antibiotics as noted above (3) Vaginal candidiasis Is this a current diagnosis for this admission?: Yes Plan: Patient received 1 dose of fluconazole 200 mg p.o. x1 Miconazole vaginal suppositories 200 mg daily x3 days was started prior to the patient receiving fluconazole, will discontinue (4) Immobility Is this a current diagnosis for this admission?: Yes Plan: Patient is not being mobile since she feels so bad Place SCDs Start enoxaparin 40 mg subcutaneously daily - Time Time Spent with patient: 25-34 minutes Medications reviewed and adjusted accordingly: Yes Anticipated Discharge Disposition: Home, Self Care Anticipated Discharge Timeframe: within 48 hours
[2020-01-14] MEDS ORDERED: CEFTRIAXONE 1 GM/D5W RTU 1 GM/50 ML RTUPB IV ONE (12:52)
[2020-01-14] MEDS: CEFTRIAXONE 1 GM/D5W RTU 1 GM/50 ML RTUPB IV SCH (12:54)
[2020-01-14] MEDS ORDERED: IBUPROFEN 800 MG TABLET PO ONE (13:00)
[2020-01-14] MEDS ORDERED: ENOXAPARIN SODIUM INJ 40 MG/0.4 ML DISP.SYRIN SUBCUT SCH (13:00)
[2020-01-14] MEDS ORDERED: HYDROXYZINE HCL 10 MG TABLET PO PRN (13:07)
[2020-01-14] MEDS: NORMAL SALINE 1000 ML 1,000 ML IV PRN (16:44)
[2020-01-15] MEDS: ACETAMINOPHEN 325 MG TABLET PO PRN ×2 (02:23→15:09)
[2020-01-15] MEDS ORDERED: IBUPROFEN 800 MG TABLET ONE (03:22)
[2020-01-15] MEDS ORDERED: IBUPROFEN 800 MG TABLET PO PRN (03:23)
[2020-01-15 07:50] LABS: ABSOLUTE EOSINOPHILS # (AUTO) 0.1 10^3/uL (0.0-0.6); ABSOLUTE LYMPHOCYTES (AUTO) 1.5 10^3/uL (0.5-4.7); ABSOLUTE MONOCYTES (AUTO) 0.3 10^3/uL (0.1-1.4); ABSOLUTE NEUT (AUTO) 8.2 10^3/uL (1.7-8.2); BASOPHILS % (AUTO) 0.4 % (0-2); EOSINOPHILS % (AUTO) 0.6 % (0-6); HEMATOCRIT 26.4 % (36.0-47.0); HEMOGLOBIN 9.2 g/dL (12.0-15.5); LYMPHOCYTES % (AUTO) 14.8 % (13-45); MEAN CORPUSCULAR HEMOGLOBIN 30.2 pg (27.0-33.4); MEAN CORPUSCULAR HGB CONC 34.9 g/dL (32.0-36.0); MEAN CORPUSCULAR VOLUME 86 fl (80-97); MONOCYTES % (AUTO) 2.6 % (3-13); PLATELET COUNT 265 10^3/uL (150-450); RED BLOOD COUNT 3.05 10^6/uL (3.72-5.28); RED CELL DISTRIBUTION WIDTH 13.6 % (11.5-14.0); SEGMENTED NEUTROPHILS % (AUTO) 81.6 % (42-78); TOTAL CELLS COUNTED % (AUTO) 100 %; WHITE BLOOD COUNT 10.1 10^3/uL (4.0-10.5)
[2020-01-15] MEDS: NORMAL SALINE 1000 ML 1,000 ML IV PRN (07:56)
[2020-01-15 08:14] LABS: ANION GAP 10 (5-19); BLOOD UREA NITROGEN 4 mg/dL (7-20); CALCIUM 8.4 mg/dL (8.4-10.2); CARBON DIOXIDE 19 mmol/L (22-30); CHLORIDE 111 mmol/L (98-107); GLUCOSE 85 mg/dL (75-110); POTASSIUM 3.7 mmol/L (3.6-5.0)
[2020-01-15] MEDS: MUPIROCIN 2% OINTMENT 22 GM TOP SCH (09:11)
[2020-01-15] MEDS: CEFTRIAXONE 1 GM/D5W RTU 1 GM/50 ML RTUPB IV SCH (09:11)
--- NOTE | 2020-01-15 09:15 | RADIOLOGY REPORT (SQ) ---
EXAM DESCRIPTION: CHEST SINGLE VIEW IMAGES COMPLETED DATE/TIME: 01/15/2020 7:54 am REASON FOR STUDY: Rule out pneumonia COMPARISON: None. EXAM PARAMETERS: NUMBER OF VIEWS: One view. TECHNIQUE: Single frontal radiographic view of the chest acquired. RADIATION DOSE: NA LIMITATIONS: None. FINDINGS: LUNGS AND PLEURA: Subsegmental airspace disease in the left costophrenic angle and lateral to the right heart border. No large effusions. MEDIASTINUM AND HILAR STRUCTURES: No masses. Contour normal. HEART AND VASCULAR STRUCTURES: Heart normal in size. Normal vasculature. BONES: No acute findings. HARDWARE: None in the chest. OTHER: No other significant finding. IMPRESSION: Bilateral pneumonia. TECHNICAL DOCUMENTATION: JOB ID: [id number] 2010 [employer]- All Rights Reserved Reading location - IP/workstation name: [email or web address]
[2020-01-15] MEDS: DOXYCYCLINE HYCLATE 100 MG in DEXTROSE 5%-WATER 250 ML IV SCH ×2 (09:26→21:04)
[2020-01-15] MEDS ORDERED: ENOXAPARIN SODIUM INJ 40 MG/0.4 ML DISP.SYRIN SUBCUT SCH (10:00)
[2020-01-15] MEDS ORDERED: CEFTRIAXONE 1 GM/D5W RTU 1 GM/50 ML RTUPB IV ONE (11:00)
[2020-01-15] MEDS: LORAZEPAM INJ 2 MG/1 ML VIAL IV PRN ×2 (11:38→16:11)
--- NOTE | 2020-01-15 13:45 | PDOC PROGRESS REPORT ---
Subjective Progress Note for:: 01/15/20 Subjective:: Patient denies chest pain/chest pressure/shortness of breath Reason For Visit: SEPSIS 2/2 INFECTED LEFT EYE BROW RING AND RIGHT Physical Exam Vital Signs: Temp Pulse Resp BP Pulse Ox 97.6 F 81 22 H 136/69 H 99 01/15/20 07:32 01/15/20 07:32 01/15/20 07:32 01/15/20 07:32 01/15/20 08:00 Pulse Oximeter Continuous Start: 01/15/20 06:17 Freq: RTQ4 Status: Active Protocol: Document 01/15/20 08:00 HCR (Rec: 01/15/20 12:30 HCR [id number]) Pulse Oximetry Assessment Oxygen Saturation (92-100) 99 Oxygen Delivery Method Room Air Fraction of Inspired Oxygen (FIO2) 21 Equipment Usage Equipment Standby Continuous Pulse Oximeter 24 Hour Charge Charge Now Continuous SpO2 Machine # xx Intake & Output 01/14/20 01/15/20 01/16/20 06:59 06:59 06:59 Intake Total 2200 2800 Balance 2200 2800 Weight 65.4 kg General appearance: PRESENT: no acute distress, well-developed, well-nourished Head exam: PRESENT: atraumatic, normocephalic Eye exam: PRESENT: conjunctiva pink Mouth exam: PRESENT: moist, tongue midline Neck exam: ABSENT: JVD Respiratory exam: PRESENT: clear to auscultation brenna, symmetrical, unlabored, other - Patient has nonproductive cough. ABSENT: accessory muscle use, crackles, rales, rhonchi, wheezes Cardiovascular exam: PRESENT: RRR, +S1, +S2 Vascular exam: PRESENT: normal capillary refill GI/Abdominal exam: PRESENT: normal bowel sounds, soft. ABSENT: distended, tenderness Rectal exam: PRESENT: deferred Extremities exam: ABSENT: calf tenderness, pedal edema Musculoskeletal exam: PRESENT: ambulatory Neurological exam: PRESENT: alert, awake, oriented to person, oriented to place, oriented to time, oriented to situation, CN II-XII grossly intact. ABSENT: motor sensory deficit Psychiatric exam: PRESENT: unusual affect, other - Patient is extremely emotio nal and sobbed uncontrollably when we discussed the fact that she had pneumonia stating "I just want to go home". ABSENT: agitated, anxious Skin exam: PRESENT: dry, normal color, warm Results Laboratory Results: 01/15/20 07:31 01/15/20 07:31 01/15/20 01/15/20 07:31 07:31 WBC 10.1 RBC 3.05 L Hgb 9.2 L Hct 26.4 L MCV 86 MCH 30.2 MCHC 34.9 RDW 13.6 Plt Count 265 Seg Neutrophils % 81.6 H Sodium 140.0 Potassium 3.7 Chloride 111 H Carbon Dioxide 19 L Anion Gap 10 BUN 4 L Creatinine 0.67 Est GFR ( Amer) > 60 Glucose 85 Calcium 8.4 01/15/20 07:31 Troponin I < 0.012 Impressions: Acute Abdomen Series 01/12/20 15:20 IMPRESSION: NO RADIOGRAPHIC EVIDENCE FOR ACUTE ABDOMINAL DISEASE. Chest X-Ray 01/15/20 00:00 IMPRESSION: Bilateral pneumonia. Assessment and Plan - Diagnosis (1) Bilateral pneumonia Is this a current diagnosis for this admission?: Yes Plan: Overnight patient desaturated necessitating supplemental oxygen Patient has a dry cough today CXR revealed bilateral pneumonia Highly suspicious for COVID pneumonia Patient currently on ceftriaxone and doxycycline, will add azithromycin 500 mg p.o. daily Check inflammatory markers and d-dimer Start ascorbic acid 500 mg p.o. twice daily Start zinc sulfate 220 mg p.o. daily Start vitamin D 2000 units p.o. daily Start melatonin 5 mg p.o. daily at at bedtime Start famotidine 20 mg p.o. to 12 hours Start atorvastatin 20 mg p.o. daily at at bedtime Start dexamethasone 2 mg IV every 8 hours Patient already on enoxaparin 40 mg p.o. daily, will continue this dose unless d-dimer continues to elevate or patient develops symptoms of thrombosis Transfer to COVID unit (2) Sepsis Qualifiers: Sepsis type: sepsis due to unspecified organism Sepsis acute organ dysfunction status: without acute organ dysfunction Qualified Code(s): A41.9 - Sepsis, unspecified organism Is this a current diagnosis for this admission?: Yes Plan: Sepsis as evidenced by fever/leukocytosis/tachycardia WBC now WNL Received vancomycin and ceftriaxone in the ED Cellulitis pattern on left eyebrow and right nipple almost completely resolved UA +/-, trace bacteria, moderate LE, negative nitrite -will request urine culture Continue IVF to 150 cc/h Blood cultures from 01/12/2020 NG at 48 hours Continue doxycycline 100 mg IV every 12 hours Continue ceftriaxone 1 g IV every 24 hours Azithromycin added as noted above Continue mupirocin topically every 12 hours (3) Cellulitis Qualifiers: Site of cellulitis: face Qualified Code(s): L03.211 - Cellulitis of face Is this a current diagnosis for this admission?: Yes Plan: Almost completely resolved Antibiotics as noted above (4) Vaginal candidiasis Is this a current diagnosis for this admission?: Yes Plan: Patient received 1 dose of fluconazole 200 mg p.o. x1 Miconazole vaginal suppositories 200 mg daily x3 days was started prior to the patient receiving fluconazole, was stopped after patient received fluconazole (5) Immobility Is this a current diagnosis for this admission?: Yes Plan: Continue enoxaparin 40 mg subcutaneously daily - Time Time Spent with patient: 25-34 minutes Medications reviewed and adjusted accordingly: Yes Anticipated Discharge Disposition: Home, Self Care Anticipated Discharge Timeframe: Unable to determine at this time
[2020-01-15 13:46] LABS: C-REACTIVE PROTEIN 305.1 mg/L (<10.0)
[2020-01-15] MEDS: CHOLECALCIFEROL (D3) 1,000 UNIT (25 MCG) TABLET PO SCH (13:59)
[2020-01-15] MEDS: ZINC SULFATE 220 MG CAPSULE PO SCH (13:59)
[2020-01-15] MEDS: AZITHROMYCIN 250 MG TABLET PO SCH (13:59)
[2020-01-15] MEDS: DEXAMETHASONE SOD PHOSPHATE INJ 4 MG/1 ML VIAL IV SCH ×2 (14:00→21:05)
--- NOTE | 2020-01-15 15:07 | EKG REPORT ---
SEVERITY:- OTHERWISE NORMAL ECG - SINUS TACHYCARDIA : Confirmed by: Harley Anand MD 15-Jan-2020 15:06:46
[2020-01-15] MEDS: ASCORBIC ACID 500 MG TABLET PO SCH ×3 (15:12→17:56)
[2020-01-15] MEDS: GUAIFENESIN 600 MG TABLET.SA PO SCH ×2 (15:13→21:04)
[2020-01-15] MEDS: FAMOTIDINE 20 MG TABLET PO SCH ×2 (15:13→21:04)
[2020-01-15] MEDS: BUSPIRONE HCL 10 MG TABLET PO ONE ×2 (17:47→21:04)
[2020-01-15] MEDS: ATORVASTATIN CALCIUM 20 MG TABLET PO SCH (21:04)
[2020-01-15] MEDS: MELATONIN 5 MG TABLET PO SCH (21:04)
[2020-01-15] MEDS ORDERED: BUSPIRONE HCL 10 MG TABLET PO ONE (21:30)
[2020-01-16] MEDS: BUSPIRONE HCL 10 MG TABLET PO ONE (00:21)
[2020-01-16] MEDS: NORMAL SALINE 1000 ML 1,000 ML IV PRN ×2 (01:47→12:01)
[2020-01-16] MEDS: DEXAMETHASONE SOD PHOSPHATE INJ 4 MG/1 ML VIAL IV SCH ×3 (05:18→22:56)
[2020-01-16] MEDS: MUPIROCIN 2% OINTMENT 22 GM TOP SCH ×3 (05:46→22:57)
[2020-01-16 06:39] LABS: ABSOLUTE MONOCYTES (AUTO) 0.2 10^3/uL (0.1-1.4); ABSOLUTE NEUT (AUTO) 7.7 10^3/uL (1.7-8.2); BASOPHILS % (AUTO) 0.3 % (0-2); HEMATOCRIT 26.4 % (36.0-47.0); HEMOGLOBIN 9.2 g/dL (12.0-15.5); LYMPHOCYTES % (AUTO) 11.2 % (13-45); MEAN CORPUSCULAR HGB CONC 34.8 g/dL (32.0-36.0); MEAN CORPUSCULAR VOLUME 86 fl (80-97); PLATELET COUNT 269 10^3/uL (150-450); RED BLOOD COUNT 3.07 10^6/uL (3.72-5.28); RED CELL DISTRIBUTION WIDTH 13.6 % (11.5-14.0); SEGMENTED NEUTROPHILS % (AUTO) 86.5 % (42-78); TOTAL CELLS COUNTED % (AUTO) 100 %; WHITE BLOOD COUNT 8.9 10^3/uL (4.0-10.5)
[2020-01-16 07:06] LABS: ALBUMIN 2.8 g/dL (3.5-5.0); ALKALINE PHOSPHATASE 63 U/L (38-126); ANION GAP 9 (5-19); ASPARTATE AMINO TRANSFERASE 18 U/L (14-36); BILIRUBIN,DIRECT 0.1 mg/dL (0.0-0.4); BILIRUBIN,TOTAL 0.3 mg/dL (0.2-1.3); BLOOD UREA NITROGEN 8 mg/dL (7-20); CALCIUM 8.9 mg/dL (8.4-10.2); CARBON DIOXIDE 19 mmol/L (22-30); CHLORIDE 112 mmol/L (98-107); GLUCOSE 117 mg/dL (75-110); POTASSIUM 4.3 mmol/L (3.6-5.0); TOTAL PROTEIN 6.1 g/dL (6.3-8.2)
[2020-01-16] MEDS ORDERED: ENOXAPARIN SODIUM INJ 40 MG/0.4 ML DISP.SYRIN SUBCUT SCH (07:45)
[2020-01-16] MEDS: ASCORBIC ACID 500 MG TABLET PO SCH ×2 (09:30→17:38)
[2020-01-16] MEDS: FAMOTIDINE 20 MG TABLET PO SCH ×2 (09:30→23:00)
[2020-01-16] MEDS: ZINC SULFATE 220 MG CAPSULE PO SCH (09:30)
[2020-01-16] MEDS: GUAIFENESIN 600 MG TABLET.SA PO SCH ×2 (09:30→22:57)
[2020-01-16] MEDS: AZITHROMYCIN 250 MG TABLET PO SCH (09:30)
[2020-01-16] MEDS: CEFTRIAXONE 2 GM/D5W RTU 2 GM/50 ML RTUPB IV SCH (09:31)
[2020-01-16] MEDS: ENOXAPARIN SODIUM INJ 60 MG/0.6 ML DISP.SYRIN SUBCUT SCH ×2 (09:31→22:56)
[2020-01-16] MEDS: CHOLECALCIFEROL (D3) 1,000 UNIT (25 MCG) TABLET PO SCH (09:31)
[2020-01-16] MEDS: DOXYCYCLINE HYCLATE 100 MG in DEXTROSE 5%-WATER 250 ML IV SCH ×2 (11:54→22:57)
[2020-01-16] MEDS: LORAZEPAM INJ 2 MG/1 ML VIAL IV PRN ×2 (14:28→20:39)
[2020-01-16 14:55] LABS: C DIFFICILE GDH NEGATIVE (NEGATIVE)
--- NOTE | 2020-01-16 16:59 | PDOC PROGRESS REPORT ---
Subjective Progress Note for:: 01/16/20 Subjective:: Patient extremely unpleasant and curses at provider. She states she just wants to go home. I informed her that while I do not recommend she go home at this time I cannot hold her against her will. Did inform her that if she chose to leave it would be AGAINST MEDICAL ADVICE Reason For Visit: SEPSIS 2/2 INFECTED LEFT EYE BROW RING AND RIGHT Physical Exam Vital Signs: Temp Pulse Resp BP Pulse Ox 98.2 F 66 22 H 143/85 H 97 01/16/20 12:48 01/16/20 14:00 01/16/20 12:48 01/16/20 12:48 01/16/20 12:48 Pulse Oximeter Continuous Start: 01/15/20 06:17 Freq: RTQ4 Status: Complete Protocol: Document 01/15/20 16:00 LDA (Rec: 01/15/20 16:12 LDA [id number]) Pulse Oximetry Assessment Equipment Usage Equipment Standby Continuous SpO2 Machine # xx Intake & Output 01/15/20 01/16/20 01/17/20 06:59 06:59 06:59 Intake Total 2800 2030 1780 Balance 2800 2030 1780 Weight 65.2 kg General appearance: PRESENT: no acute distress, well-developed, well-nourished Head exam: PRESENT: atraumatic, normocephalic Eye exam: PRESENT: conjunctiva pink Mouth exam: PRESENT: moist, tongue midline Neck exam: ABSENT: JVD Respiratory exam: PRESENT: symmetrical, unlabored. ABSENT: accessory muscle use, decreased breath sounds - Breath sounds coarse Cardiovascular exam: PRESENT: RRR, +S1, +S2, other - QTC on 01/15/20 - 423 Pulses: PRESENT: normal radial pulses Vascular exam: PRESENT: normal capillary refill GI/Abdominal exam: PRESENT: normal bowel sounds, soft, other - Patient has had several diarrheal stools today. ABSENT: distended, tenderness Rectal exam: PRESENT: deferred Extremities exam: ABSENT: calf tenderness, pedal edema Musculoskeletal exam: PRESENT: ambulatory Neurological exam: PRESENT: alert, awake, oriented to person, oriented to place, oriented to time, oriented to situation, CN II-XII grossly intact Psychiatric exam: PRESENT: anxious, other - Patient extremely angry. ABSENT: agitated Skin exam: PRESENT: dry, normal color, warm - Left eyebrow piercing site with only very minimal erythema and no exudate. No satellite instruction facilitator available at the time of exam thus nipple piercing site not examined Results Laboratory Results: 01/16/20 05:34 01/16/20 05:34 01/16/20 01/16/20 05:34 05:34 WBC 8.9 RBC 3.07 L Hgb 9.2 L Hct 26.4 L MCV 86 MCH 30.0 MCHC 34.8 RDW 13.6 Plt Count 269 Seg Neutrophils % 86.5 H Sodium 139.5 Potassium 4.3 Chloride 112 H Carbon Dioxide 19 L Anion Gap 9 BUN 8 Creatinine 0.55 Est GFR ( Amer) > 60 Glucose 117 H Calcium 8.9 Total Bilirubin 0.3 AST 18 Alkaline Phosphatase 63 Total Protein 6.1 L Albumin 2.8 L 01/15/20 07:31 Troponin I < 0.012 Impressions: Acute Abdomen Series 01/12/20 15:20 IMPRESSION: NO RADIOGRAPHIC EVIDENCE FOR ACUTE ABDOMINAL DISEASE. Chest X-Ray 01/15/20 00:00 IMPRESSION: Bilateral pneumonia. Assessment and Plan - Diagnosis (1) Bilateral pneumonia Is this a current diagnosis for this admission?: Yes Plan: Patient has been successfully weaned from supplemental oxygen Patient continues to have a dry cough CXR on 01/15/2020 revealed bilateral pneumonia Inflammatory markers and d-dimer elevated Highly suspicious for COVID pneumonia, SARS-CoV-2 pending Continue ceftriaxone, doxycycline, and azithromycin 500 Continue ascorbic acid 500 mg p.o. twice daily Continue zinc sulfate 220 mg p.o. daily Continue vitamin D 2000 units p.o. daily Continue melatonin 5 mg p.o. daily at at bedtime Continue famotidine 20 mg p.o. to 12 hours Continue atorvastatin 20 mg p.o. daily at at bedtime Continue dexamethasone 2 mg IV every 8 hours (2) Elevated d-dimer Is this a current diagnosis for this admission?: Yes Plan: Increase enoxaparin to 60 mg subcutaneous every 12 hours (3) Sepsis Qualifiers: Sepsis type: sepsis due to unspecified organism Sepsis acute organ d ysfunction status: without acute organ dysfunction Qualified Code(s): A41.9 - Sepsis, unspecified organism Is this a current diagnosis for this admission?: Yes Plan: Sepsis as evidenced by fever/leukocytosis/tachycardia WBC now WNL Tachycardia resolved Afebrile since afternoon of 01/15/2020 Cellulitis almost completely resolved UA +/-, trace bacteria, moderate LE, negative nitrite -urine culture NGTD Continue IVF to 150 cc/h Blood cultures from 01/12/2020 NG at 4 days Continue doxycycline 100 mg IV every 12 hours Continue ceftriaxone 1 g IV every 24 hours, can likely stop ceftriaxone soon if urine culture remains negative Continue azithromycin 500 mg IV every 24 hours Continue mupirocin topically every 12 hours Check lactic acid in a.m. (4) Cellulitis Qualifiers: Site of cellulitis: face Qualified Code(s): L03.211 - Cellulitis of face Is this a current diagnosis for this admission?: Yes Plan: Almost completely resolved Antibiotics as noted above, can likely stop doxycycline tomorrow (5) Vaginal candidiasis Is this a current diagnosis for this admission?: Yes Plan: Patient received 1 dose of fluconazole 200 mg p.o. x1 Miconazole vaginal suppositories 200 mg daily x3 days was started prior to the patient receiving fluconazole, was stopped after patient received fluconazole (6) Diarrhea Is this a current diagnosis for this admission?: Yes Plan: C. difficile sent and negative Add lactobacillus 500 mg p.o. twice daily Add loperamide 2 mg p.o. every 6 hours as needed - Time Time Spent with patient: 25-34 minutes Medications reviewed and adjusted accordingly: Yes Anticipated Discharge Disposition: Home, Self Care Anticipated Discharge Timeframe: Unable to determine at this time
[2020-01-16] MEDS ORDERED: LOPERAMIDE HCL 2 MG CAPSULE PO PRN (17:34)
[2020-01-16] MEDS: LACTOBACILLUS ACIDOPHILUS 250 MG TAB PO SCH (17:38)
[2020-01-16] MEDS: MELATONIN 5 MG TABLET PO SCH (22:57)
[2020-01-16] MEDS: ATORVASTATIN CALCIUM 20 MG TABLET PO SCH (22:57)
--- NOTE | 2020-01-17 00:28 | Progress Note ---
Provider Note Provider Note: After extensive literature review and review of latest recommendations on anticoagulation in COVID-19 patients it is unclear if full dose anticoagulation is beneficial in non-critically ill patients. Given this fact I will decrease enoxaparin dose back to VTE prophylaxis dose of 40 mg subcutaneous daily. The patient will need to be evaluated on a daily basis for signs of thrombosis. If she does develop any signs of thrombosis we will need to increase the enoxaparin back to therapeutic dose.
[2020-01-17] MEDS: DEXAMETHASONE SOD PHOSPHATE INJ 4 MG/1 ML VIAL IV SCH ×2 (06:10→13:11)
[2020-01-17 06:18] LABS: ABSOLUTE BASOPHILS # (AUTO) 0.1 10^3/uL (0.0-0.2); ABSOLUTE LYMPHOCYTES (AUTO) 1.7 10^3/uL (0.5-4.7); ABSOLUTE MONOCYTES (AUTO) 0.4 10^3/uL (0.1-1.4); ABSOLUTE NEUT (AUTO) 9.4 10^3/uL (1.7-8.2); BASOPHILS % (AUTO) 0.5 % (0-2); EOSINOPHILS % (AUTO) 0.1 % (0-6); HEMATOCRIT 26.7 % (36.0-47.0); LYMPHOCYTES % (AUTO) 14.3 % (13-45); MEAN CORPUSCULAR HEMOGLOBIN 29.2 pg (27.0-33.4); MEAN CORPUSCULAR HGB CONC 33.8 g/dL (32.0-36.0); MEAN CORPUSCULAR VOLUME 86 fl (80-97); MONOCYTES % (AUTO) 3.8 % (3-13); PLATELET COUNT 323 10^3/uL (150-450); RED BLOOD COUNT 3.09 10^6/uL (3.72-5.28); RED CELL DISTRIBUTION WIDTH 13.8 % (11.5-14.0); SEGMENTED NEUTROPHILS % (AUTO) 81.3 % (42-78); TOTAL CELLS COUNTED % (AUTO) 100 %; WHITE BLOOD COUNT 11.5 10^3/uL (4.0-10.5)
[2020-01-17 06:39] LABS: ALBUMIN 2.8 g/dL (3.5-5.0); ALKALINE PHOSPHATASE 54 U/L (38-126); ANION GAP 5 (5-19); ASPARTATE AMINO TRANSFERASE 15 U/L (14-36); BILIRUBIN,DIRECT 0.1 mg/dL (0.0-0.4); BILIRUBIN,TOTAL 0.2 mg/dL (0.2-1.3); BLOOD UREA NITROGEN 9 mg/dL (7-20); CARBON DIOXIDE 21 mmol/L (22-30); CHLORIDE 113 mmol/L (98-107); GLUCOSE 129 mg/dL (75-110); POTASSIUM 4.4 mmol/L (3.6-5.0)
--- NOTE | 2020-01-17 07:58 | EKG REPORT ---
SEVERITY:- BORDERLINE ECG - SINUS RHYTHM BORDERLINE T ABNORMALITIES, ANTERIOR LEADS : Confirmed by: Colin Peterson 17-Jan-2020 07:57:27
[2020-01-17] MEDS: LACTOBACILLUS ACIDOPHILUS 250 MG TAB PO SCH (10:11)
[2020-01-17] MEDS: AZITHROMYCIN 250 MG TABLET PO SCH (10:11)
[2020-01-17] MEDS: CHOLECALCIFEROL (D3) 1,000 UNIT (25 MCG) TABLET PO SCH (10:11)
[2020-01-17] MEDS: CEFTRIAXONE 2 GM/D5W RTU 2 GM/50 ML RTUPB IV SCH (10:11)
[2020-01-17] MEDS: FAMOTIDINE 20 MG TABLET PO SCH (10:11)
[2020-01-17] MEDS: ZINC SULFATE 220 MG CAPSULE PO SCH (10:11)
[2020-01-17] MEDS: GUAIFENESIN 600 MG TABLET.SA PO SCH (10:12)
[2020-01-17] MEDS: ASCORBIC ACID 500 MG TABLET PO SCH (10:12)
[2020-01-17] MEDS: DOXYCYCLINE HYCLATE 100 MG in DEXTROSE 5%-WATER 250 ML IV SCH (10:12)
[2020-01-17] MEDS: MUPIROCIN 2% OINTMENT 22 GM TOP SCH (10:13)
[2020-01-17] MEDS: LORAZEPAM INJ 2 MG/1 ML VIAL IV PRN (10:29)
[2020-01-17 16:01] VITALS: BP 168/98
[2020-01-17] MEDS ORDERED: DOXYCYCLINE HYCLATE 100 MG TABLET PO SCH (22:00)
[2020-01-17] MEDS ORDERED: ENOXAPARIN SODIUM INJ 60 MG/0.6 ML DISP.SYRIN SUBCUT SCH (22:00)
[2020-01-17] MEDS ORDERED: ENOXAPARIN SODIUM INJ 40 MG/0.4 ML DISP.SYRIN SUBCUT SCH (22:00)
[2020-01-17] MEDS ORDERED: CEFPODOXIME 200 MG TABLET PO SCH (22:00)
--- NOTE | 2020-01-19 18:55 | PDOC DISCHARGE SUMMARY ---
Impression - Admit/DC Date/PCP Admission Date/Primary Care Provider: 01/12/20 19:56 Discharge Date: 01/17/20 - Discharge Diagnosis (1) Bilateral pneumonia Is this a current diagnosis for this admission?: Yes (2) Cellulitis Is this a current diagnosis for this admission?: Yes (3) Diarrhea Is this a current diagnosis for this admission?: Yes (4) Elevated d-dimer Is this a current diagnosis for this admission?: Yes (5) Sepsis Is this a current diagnosis for this admission?: Yes (6) Vaginal candidiasis Is this a current diagnosis for this admission?: Yes - Additional Information Resuscitation Status: Full Code Discharge Diet: Regular Discharge Activity: Activity As Tolerated, Balance Activity w/Rest, Slowly Increase Activity Referrals: [facility] [Outside] - 01/25/20 3:00 pm (Tele Med appointment with Dr. Puentes) Prescriptions: Cefpodoxime Proxetil [Vantin 200 mg Tablet] 200 mg PO Q12 #14 tablet Doxycycline Hyclate [Vibramycin 100 mg Tablet] 100 mg PO Q12 #14 tablet Home Medications: Acetaminophen [Tylenol 325 mg Tablet] 650 mg PO Q4H PRN tablet 01/17/20 Cefpodoxime Proxetil [Vantin 200 mg Tablet] 200 mg PO Q12 #14 tablet 01/17/20 Doxycycline Hyclate [Vibramycin 100 mg Tablet] 100 mg PO Q12 #14 tablet 01/17/20 History of Present Illiness History of Present Illness: Per H&P Theodore Bey: MYKEL ACUÑA is a 19 year old female who has presented 2 times in the recent past with left eyebrow and right nipple piercing site infections. On the first visit she was placed on an antibiotic and discharged and told that if her infection did not improve to return to the ED. Approximately 1 week later she returned to the ED because her infection did not appear to be getting any better to her. At that point she was placed on a second antibiotic however subsequent to starting that she developed nausea and vomiting. She presented today with complaints of generalized weakness, malaise, fever, and ongoing infection. Hospital Course Hospital Course: Patient initially admitted for sepsis with noted cellulitis to the left eyebrow, vaginal candidiasis, and bilateral pneumonia. She was empirically placed on IV azithromycin, ceftriaxone, and doxycycline due. COVID-19 testing was negative. Pending test results, she was also supported with vitamin C, vitamin D, zinc, melatonin, dexamethasone, atorvastatin, and full dose Lovenox. Fortunately, the patient's clinical condition rapidly improved with near complete resolution of her cellulitis prior to discharge. She was also treated with fluconazole x1 followed by miconazole vaginal suppositories x3 days. At time of discharge, patient was asymptomatic, maintaining oxygen saturations on room air, ambulatory in the room without difficulty, and requesting to discharge to home. She was discharged with prescriptions for Cefpodoxime and doxycycline (to complete antibiotic course for treatment of community-acquired pneumonia). She was advised to discontinue smoking and illicit drug use. She was encouraged to return to the emergency department as needed for concerning symptoms. Physical Exam Vital Signs: Temp Pulse Resp BP Pulse Ox 98.3 F 57 L 10 L 168/98 H 96 01/17/20 15:59 01/17/20 15:59 01/17/20 15:59 01/17/20 15:59 01/17/20 15:59 Pulse Oximeter Continuous Start: 01/15/20 06:17 Freq: RTQ4 Status: Complete Protocol: Document 01/15/20 16:00 LDA (Rec: 01/15/20 16:12 [facility] [id number]) Pulse Oximetry Assessment Equipment Usage Equipment Standby Continuous SpO2 Machine # xx Intake & Output 01/18/20 01/19/20 01/20/20 06:59 06:59 06:59 Intake Total 1300 Balance 1300 General appearance: PRESENT: no acute distress, cooperative, well-developed, well-nourished Head exam: PRESENT: atraumatic, normocephalic Eye exam: PRESENT: conjunctiva pink, EOMI, PERRLA. ABSENT: scleral icterus Mouth exam: PRESENT: moist, tongue midline Teeth exam: PRESENT: poor dentation Respiratory exam: PRESENT: clear to auscultation brenna, symmetrical, unlabored. ABSENT: rales, rhonchi, wheezes Cardiovascular exam: PRESENT: RRR, +S1, +S2. ABSENT: diastolic murmur, rubs, systolic murmur Pulses: PRESENT: normal dorsalis pedis pul Vascular exam: PRESENT: normal capillary refill GI/Abdominal exam: PRESENT: normal bowel sounds, soft. ABSENT: distended, guarding, mass, organolmegaly, rebound, tenderness Rectal exam: PRESENT: deferred Extremities exam: PRESENT: full ROM. ABSENT: calf tenderness, clubbing, pedal edema Neurological exam: PRESENT: alert, awake, oriented to person, oriented to place, oriented to time, oriented to situation, CN II-XII grossly intact. ABSENT: motor sensory deficit Psychiatric exam: PRESENT: agitated, appropriate affect, normal mood. ABSENT: homicidal ideation, suicidal ideation Skin exam: PRESENT: dry, intact, warm. ABSENT: cyanosis, rash Results Laboratory Results: WBC 11.5 10^3/uL (4.0-10.5) H 01/17/20 05:31 RBC 3.09 10^6/uL (3.72-5.28) L 01/17/20 05:31 Hgb 9.0 g/dL (12.0-15.5) L 01/17/20 05:31 Hct 26.7 % (36.0-47.0) L 01/17/20 05:31 MCV 86 fl (80-97) 01/17/20 05:31 MCH 29.2 pg (27.0-33.4) 01/17/20 05:31 MCHC 33.8 g/dL (32.0-36.0) 01/17/20 05:31 RDW 13.8 % (11.5-14.0) 01/17/20 05:31 Plt Count 323 10^3/uL (150-450) 01/17/20 05:31 Lymph % (Auto) 14.3 % (13-45) 01/17/20 05:31 Sebastian % (Auto) 3.8 % (3-13) 01/17/20 05:31 Eos % (Auto) 0.1 % (0-6) 01/17/20 05:31 Baso % (Auto) 0.5 % (0-2) 01/17/20 05:31 Absolute Neuts (auto) 9.4 10^3/uL (1.7-8.2) H 01/17/20 05:31 Absolute Lymphs (auto) 1.7 10^3/uL (0.5-4.7) 01/17/20 05:31 Absolute Monos (auto) 0.4 10^3/uL (0.1-1.4) 01/17/20 05:31 Absolute Eos (auto) 0.0 10^3/uL (0.0-0.6) 01/17/20 05:31 Absolute Basos (auto) 0.1 10^3/uL (0.0-0.2) 01/17/20 05:31 Seg Neutrophils % 81.3 % (42-78) H 01/17/20 05:31 D-Dimer 0.72 ug/mL (0.00-0.50) H 01/17/20 05:31 Sodium 139.4 mmol/L (137-145) 01/17/20 05:31 Potassium 4.4 mmol/L (3.6-5.0) 01/17/20 05:31 Chloride 113 mmol/L (98-107) H 01/17/20 05:31 Carbon Dioxide 21 mmol/L (22-30) L 01/17/20 05:31 Anion Gap 5 (5-19) 01/17/20 05:31 BUN 9 mg/dL (7-20) 01/17/20 05:31 Creatinine 0.62 mg/dL (0.52-1.25) 01/17/20 05:31 Est GFR ( Amer) > 60 (>60) 01/17/20 05:31 Est GFR (MDRD) Non-Af > 60 (>60) 01/17/20 05:31 Glucose 129 mg/dL (75-110) H 01/17/20 05:31 Lactic Acid 0.7 mmol/L (0.7-2.1) 01/17/20 05:31 Calcium 9.0 mg/dL (8.4-10.2) 01/17/20 05:31 Ferritin 285.00 ng/mL (6.2-137.0) H 01/17/20 05:31 Total Bilirubin 0.2 mg/dL (0.2-1.3) 01/17/20 05:31 Direct Bilirubin 0.1 mg/dL (0.0-0.4) 01/17/20 05:31 Neonat Total Bilirubin Not Reportable 01/17/20 05:31 Neonat Direct Bilirubin Not Reportable 01/17/20 05:31 Neonat Indirect Bili Not Reportable 01/17/20 05:31 AST 15 U/L (14-36) 01/17/20 05:31 ALT 9 U/L (<35) 01/17/20 05:31 Alkaline Phosphatase 54 U/L (38-126) 01/17/20 05:31 Lactate Dehydrogenase 236 U/L (120-246) 01/17/20 05:31 Troponin I < 0.012 ng/mL 01/15/20 07:31 C-Reactive Protein 149.0 mg/L (<10.0) H 01/17/20 05:31 Total Protein 6.0 g/dL (6.3-8.2) L 01/17/20 05:31 Albumin 2.8 g/dL (3.5-5.0) L 01/17/20 05:31 Lipase 91.4 U/L (23-300) 01/12/20 16:35 Urine Color MARIA INES 01/12/20 16:35 Urine Appearance TURBID 01/12/20 16:35 Urine pH 5.0 (5.0-9.0) 01/12/20 16:35 Ur Specific [place] 1.030 01/12/20 16:35 Urine Protein 100 mg/dL (NEGATIVE) H 01/12/20 16:35 Urine Glucose (UA) NEGATIVE mg/dL (NEGATIVE) 01/12/20 16:35 Urine Ketones TRACE mg/dL (NEGATIVE) H 01/12/20 16:35 Urine Blood LARGE (NEGATIVE) H 01/12/20 16:35 Urine Nitrite (Reflex) NEGATIVE (NEGATIVE) 01/12/20 16:35 Urine Bilirubin NEGATIVE (NEGATIVE) 01/12/20 16:35 Urine Urobilinogen NEGATIVE mg/dL (<2.0) 01/12/20 16:35 Leukocyte Esterase Rfl MODERATE (NEGATIVE) H 01/12/20 16:35 Urine RBC (Auto) 112 /HPF 01/12/20 16:35 Urine Bacteria (Auto) TRACE /HPF 01/12/20 16:35 Urine WBC (Reflex) > 182 /HPF 01/12/20 16:35 Squamous Epi Cells Auto 8 /HPF 01/12/20 16:35 Urine Mucus (Auto) MANY /LPF 01/12/20 16:35 Urine Ascorbic Acid NEGATIVE (NEGATIVE) 01/12/20 16:35 Urine HCG, Qual NEGATIVE (NEGATIVE) 01/12/20 16:35 Stl C. Difficile GDH Ag NEGATIVE (NEGATIVE) 01/16/20 13:20 Stl C.difficile Tox A&B NEGATIVE (NEGATIVE) 01/16/20 13:20 COVID-19 Source NASOPHARYNGEAL 01/15/20 12:02 COVID-19 (MIK) NOT DETECTED 01/15/20 12:02 01/15/20 07:31 Troponin I < 0.012 Impressions: Acute Abdomen Series 01/12/20 15:20 IMPRESSION: NO RADIOGRAPHIC EVIDENCE FOR ACUTE ABDOMINAL DISEASE. Chest X-Ray 01/15/20 00:00 IMPRESSION: Bilateral pneumonia. Plan Plan of Treatment: Patient is discharged home in stable condition. She is advised follow-up with her primary care provider within 1 week. She is instructed to complete her course of antibiotic therapy. Drink plenty of water. Take other medications as prescribed. Do not use illicit drugs. Return to the emergency department as needed for concerning symptoms. Time Spent: Greater than 30 Minutes Stroke Is this a Stroke Patient?: No Acute Heart Failure - Is this a Heart Failure Patient?: No
== END 2020-01-17 16:50 | disposition home or self-care (01) | DRG 871 ==
LOC: ER 14:53 → OBSVTOIN 19:56 → EH 19:56 → 2N 21:53 → 3W 01-15 14:45
PROVIDERS: ADMIT Hospitalist; ATTEND Registered Nurse
DX: A41.9 Sepsis, unspecified organism (principal); J18.9 Pneumonia, unspecified organism; L03.211 Cellulitis of face; R19.7 Diarrhea, unspecified; R79.1 Abnormal coagulation profile; B37.3 Candidiasis of vulva and vagina; F14.11 Cocaine abuse, in remission; S01.142A Puncture wound with foreign body of left eyelid and periocular area, initial encounter; S21.041A Puncture wound with foreign body of right breast, initial encounter; N61.0 Mastitis without abscess; Z20.828 Contact with and (suspected) exposure to other viral communicable diseases; Z87.891 Personal history of nicotine dependence; Z79.52 Long term (current) use of systemic steroids
CPT/HCPCS: 36415; 71045; 74022; 80048; 80053; 81001; 81025; 82728; 83605; 83615; 83690; 84484; 85025; 85379; 86140; 87040; 87086; 87324; 87449; 87635; 93005; 93010; 94762; 96361; 96365; 96375; 99285; C9803; J0696; J1100; J1650; J2060; J2405; J3370; J3490; J7030; J7060